=== PATIENT | female | born 2000 | race Caucasian/White ===

== ENCOUNTER → 2022-03-05 10:20 | Outpatient (CLI) | payer BC, SELFPAY ==
--- NOTE | ~2022-03-05 | US_ITS ---
US thyroid INDICATION: Nontoxic goiter TECHNIQUE: Real-time sonographic images of the thyroid gland were obtained. COMPARISON: No prior studies for comparison. FINDINGS: The right thyroid lobe measures 5.1 x 1.3 x 1.6 cm. The left thyroid lobe measures 4.9 x 1 .3 x 1.2 cm. There is normal echotexture and echogenicity throughout the thyroid gland. No discrete n odules identified. Normal vascular flow is present. IMPRESSION: 1. Normal thyroid without discrete nodule or abnormal vascularity. Reviewed, dictated and finalized at location A.
== END ==
PROVIDERS: PCP Family Medicine; Visit Provider Family Medicine
DX: E04.0 Nontoxic diffuse goiter (principal)
CPT/HCPCS: 76536

== ENCOUNTER 2023-06-02 16:27 | Emergency (ER) | payer BC, SELFPAY ==
[2023-06-02 16:37] VITALS: BP 124/73; PULSE 69; RESP 16; TEMP 35.9; O2SAT 100
[2023-06-02 16:39] VITALS: BP 124/73; PULSE 69; RESP 16; TEMP 35.9; O2SAT 100
--- NOTE | 2023-06-02 16:59 | ED.SKABFB ---
HPI - Skin/Abscess/Foreign Bdy General Chief complaint: Skin/Abscess/Foreign Body Stated complaint: Right Foot Toe Pain Time Seen by Provider: 06/02/23 16:51 Source: patient and RN notes reviewed Mode of arrival: ambulatory Limitations: no limitations History of Present Illness HPI narrative: Patient presents today complaining of an infection to her right great toe. She had pedicure 8 days ago. Four days ago she states that the toe became red, painful with some drainage, and symptoms have worsened today. Currently rates her pain 7/10 with walking. She has tried no [id number] treatment prior to arrival. Related Data Home Medications Medication Instructions Recorded Confirmed etonogestrel 68 mg subdermal 1 implant subdermal ONCE 07/17/19 06/02/23 implant (Nexplanon) gabapentin 300 mg capsule 300 mg PO TID 06/02/23 06/02/23 Allergies Allergy/AdvReac Type Severity Reaction Status Date / Time amoxicillin AdvReac Intermediate Nausea Verified 06/02/23 16:37 clavulanic acid AdvReac Intermediate Nausea and Verified 06/02/23 16:37 [From Augmentin] Vomiting Review of Systems Review of Systems: CONSTITUTIONAL: Denies body aches, fever, chills, or sweats. EYES: Denies visual changes, redness, or discharge. ENT: Denies rhinorrhea, congestion, sore throat, or otalgia. CARDIOVASCULAR: Denies chest pain, palpitations, or edema. RESPIRATORY: Denies cough or dyspnea. GASTROINTESTINAL: Denies abdominal pain, nausea, vomiting, or diarrhea. GENITOURINARY: Denies dysuria or hematuria. SKIN: Denies rash, itching, or wounds.+ right toe redness and pain MUSCULOSKELETAL: Denies back pain, joint pain, or myalgia. NEUROLOGIC: Denies headache, numbness, tingling, or weakness. PSYCH: Denies depression or anxiety. FOR[facility]LY [facility], [facility] Past Medical History Medical History Fadi's thyroiditis Psoriasiform seborrheic dermatitis Seborrheic dermatitis Social History Social History Smoking status: Never smoker Alcohol intake: never Substance use: never Lack of Transportation: No Lack of Food: Never True Current Housing: I Have Housing Concerned About Future Housing: No Difficulty Paying Gas/Electric Bills: No Difficulty Paying for Meds: No Currently Unemployed: No Education: Associate Degree Difficulty w/ Childcare or Family Care: No Comments At time of signature, I have reviewed and agree with nursing past medical, surgical, social and family history unless otherwise noted. Please see nursing chart for further information. There is no relevant family history pertinent to the presenting complaint Exam Narrative: GENERAL: Well-appearing, well-nourished, and in no acute distress. HEAD: Normocephalic, atraumatic. EYES: EOMI. No redness or drainage. Conjunctivae normal. ENT: Mucous membranes pink and moist. NECK: Normal AROM. CHEST: No respiratory distress. EXTREMITIES: Normal range of motion. No edema. SKIN: Warm, dry, no rash. Capillary refill normal. Normal skin turgor. Right great toe: Erythema from the distal tip to the base of the nail. Crusting drainage to the medial nail fold. Tender to palpation. Distal sensation intact. Capillary refill normal. Full range of motion of the toe. NEURO: No focal deficits. Alert and oriented x3. Gait steady. PSYCH: Normal affect. No signs of depression or anxiety. Course Course Level of Care: Express Care Visit Vital Signs Vital signs: Vital Signs Temperature 96.7 F L 06/02/23 16:37 Pulse Rate 69 06/02/23 16:37 Respiratory Rate 16 06/02/23 16:37 Blood Pressure 124/73 06/02/23 16:37 Pulse Oximetry 100 06/02/23 16:37 Oxygen Delivery Room Air 06/02/23 16:37 Temperature 96.7 F L 06/02/23 16:39 Pulse Rate 69 06/02/23 16:39 Respiratory Rate 16 06/02/23 16:39 Blood Pressure 124/73 06/02/23 16:3
== END 2023-06-02 17:05 | disposition home or self-care (01) ==
PROVIDERS: Emergency Provider Nurse Practitioner; PCP Family Medicine
DX: L60.0 Ingrowing nail (principal); E06.3 Autoimmune thyroiditis
CPT/HCPCS: 99213; G0463